=== PATIENT | female | born 1940 | race African-American/Black ===

== ENCOUNTER 2021-08-08 15:34 | Emergency (ER) | payer MEDICARE ==
[~2021-08-08] VITALS: Ht 170.2 cm; Wt 72.7 kg
--- NOTE | 2021-08-08 16:03 | EKG ---
[facility] [address] [place] [address] Test Date: 2021-08-08 Test Time: 15:56:04 Pat Name: SAMARIA BAUTISTA Department: Room: Gender: F [employer] Operator: : 1940 Requested By: JADEN PHELPS Order Number: [id number] Reading MD: Yohan Ferrell Measurements Intervals [place] Rate: 54 P: MO: QRS: -26 QRSD: 142 T: 26 QT: 438 QTc: 417 Interpretive Statements SINUS RHYTHM NON SPECIFIC ST-T WAVE CHANGES Electronically Signed On 08-09-2021 17:38:45 [employer] by Yohan Ferrell
--- NOTE | 2021-08-08 16:37 | RAD ---
AP chest. HISTORY: Chest pain AP view was taken of the chest. Lungs are free of infiltrates. Heart is normal in size. There is no p leural effusion. IMPRESSION: 1. No acute infiltrates. Electronically signed by: Juan Jose Lauren MD (08/08/2021 4:35 PM) [id number]
[2021-08-08 16:51] LABS: BASO % 1 % (0-3); EOS # 0.2 x10^3/uL (0.0-0.7); EOS % 3 % (0-3); HEMATOCRIT 34.3 % (36.0-47.0); HEMOGLOBIN 11.2 g/dL (12.0-15.5); LYMPH # 1.4 x10^3/uL (1.0-4.8); LYMPH % 29 % (24-48); MEAN CORPUSCULAR HEMOGLOBIN 30 pg (25-35); MEAN CORPUSCULAR HGB CONC 33 g/dL (31-37); MEAN CORPUSCULAR VOLUME 90 fL (79-100); MONO # 0.3 x10^3/uL (0.0-1.1); MONO % 7 % (0-9); NEUT % 61 % (31-73); PLATELET COUNT 154 x10^3/uL (140-400); RED BLOOD COUNT 3.79 x10^6/uL (3.50-5.40); RED CELL DISTRIBUTION WIDTH 14.2 % (11.5-14.5); WHITE BLOOD COUNT 4.9 x10^3/uL (4.0-11.0)
[2021-08-08 17:02] LABS: CALCIUM 8.9 mg/dL (8.5-10.1); CREATININE 0.9 mg/dL (0.6-1.0); GFR 60.1; POTASSIUM 4.4 mmol/L (3.5-5.1)
[2021-08-08 17:08] LABS: ALBUMIN 3.4 g/dL (3.4-5.0); ALBUMIN/GLOBULIN RATIO 0.9 (1.0-1.7); MAGNESIUM 2.3 mg/dL (1.8-2.4); TOTAL BILIRUBIN 0.3 mg/dL (0.2-1.0)
[2021-08-08] MEDS ORDERED: LIDOCAINE (700MG/PATCH) PATCH. TD ONE (18:00)
--- NOTE | 2021-08-08 18:00 | PHYS DOC ---
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 States pain started while she was sitting down at 2:00pm. Patient denies any falls, trauma, chest wall injury. Patient is drowsy on exam. EMS did not provide any paperwork from [facility] so I spoke to patient's daughter, Sigrid at [phone]. Letter sent for me that patient has history of a CVA 2019 and breast cancer treatment at [facility]. Daughter reports patient has chronic right-sided chest wall pain after vasectomy due to them cutting a vein that went all the way to the stomach. Daughter reports pain medications only make patient sleepy. Review of Systems: Review of Systems: Constitutional: Denies fever or chills. [] Eyes: Denies change in visual acuity. [] HENT: Denies nasal congestion or sore throat. [] Respiratory: Denies cough or shortness of breath. [] Cardiovascular: Denies syncope or edema. [] GI: Denies abdominal pain, nausea, vomiting, bloody stools or diarrhea. [] : Denies saddle anesthesia or incontinence Musculoskeletal: Denies back pain or joint pain. [] Integument: Denies rash or diaphoresis Neurologic: Denies headache, focal weakness or sensory changes. [] Endocrine: Denies polyuria or polydipsia. [] Lymphatic: Denies swollen glands. [] Psychiatric: Denies depression or anxiety. [] Heart Score: C/O Chest Pain: Yes HEART Score for Chest Pain: HEART Score for Chest Pain Response (Comments) Value History Slighlty/Non-Suspicious 0 ECG Nonspecific Repolarizatio 1 Age < 45 0 Risk Factors >3 Risk Factors or Hx CAD 2 Troponin < Normal Limit 0 Total 3 Risk Factors: Risk Factors: DM, Current or recent (<one month) smoker, HTN, HLP, family history of CAD, obesity. Risk Scores: Score 0 - 3: 2.5% MACE over next 6 weeks - Discharge Home Score 4 - 6: 20.3% MACE over next 6 weeks - Admit for Clinical Observation Score 7 - 10: 72.7% MACE over next 6 weeks - Early Invasive Strategies Allergies: Allergies: Allergies Coded Allergies Type Severity Reaction Last Updated Verified No Known Drug Allergies 08/08/21 No Physical Exam: PE: Constitutional: Well developed, well nourished, no acute distress, non-toxic darvin earance. HENT: Normocephalic, atraumatic, Eyes: EOMI, conjunctiva normal, no discharge. Neck: Normal range of motion, supple, Cardiovascular: S1/2 present, regular rhythm, large scar right upper anterior chest wall with tenderness to palpation, no associated rash Lungs & Thorax: Speaking in full sentences, bilateral equal chest rise, no tachypnea or increased work of breathing Abdomen: soft, no tenderness, Skin: Warm, dry, no erythema, no rash. [] Back: No tenderness, no CVA tenderness. [] Extremities: No tenderness, no cyanosis, Neurologic: Alert and oriented X 3, normal motor function, normal sensory function, no focal deficits noted. [] Psychologic: Affect normal, judgement normal, mood normal. [] Current Patient Data: Labs: Laboratory Tests Test 08/08/21 16:40 White Blood Count 4.9 x10^3/uL (4.0-11.0) Red Blood Count 3.79 x10^6/uL (3.50-5.40) Hemoglobin 11.2 g/dL (12.0-15.5) L Hematocrit 34.3 % (36.0-47.0) L Mean Corpuscular Volume 90 fL (79-100) Mean Corpuscular Hemoglobin 30 pg (25-35) Mean Corpuscular Hemoglobin Concent 33 g/dL (31-37) Red Cell Distribution Width 14.2 % (11.5-14.5) Platelet Count 154 x10^3/uL (140-400) Neutrophils (%) (Auto) 61 % (31-73) Lymphocytes (%) (Auto) 29 % (24-48) Monocytes (%) (Auto) 7 % (0-9) Eosinophils (%) (Auto) 3 % (0-3) Basophils (%) (Auto) 1 % (0-3) Neutrophils # (Auto) 3.0 x10^3/uL (1.8-7.7) Lymphocytes # (Auto) 1.4 x10^3/uL (1.0-4.8) Monocytes # (Auto) 0.3 x10^3/uL (0.0-1.1) Eosinophils # (Auto) 0.2 x10^3/uL (0.0-0.7) Basophils # (Auto) 0.0 x10^3/uL (0.0-0.2) D-Dimer (Belle) 1.02 ug/mlFEU (0.00-0.50) H Sodium Level 147 mmol/L (136-145) H Potassium Level 4.4 mmol/L (3.5-5.1) Chloride Level 110 mmol/L (98-107) H Carbon Dioxide Level 27 mmol/L (21-32) Anion Gap 10 (6-14) Blood Urea Nitrogen 14 mg/dL (7-20) Creatinine 0.9 mg/dL (0.6-1.0) Estimated GFR (Cockcroft-Gault) 60.1 BUN/Creatinine Ratio 16 (6-20) Glucose Level 110 mg/dL (70-99) H Calcium Level 8.9 mg/dL (8.5-10.1) Magnesium Level 2.3 mg/dL (1.8-2.4) Total Bilirubin 0.3 mg/dL (0.2-1.0) Aspartate Amino Transferase (AST) 11 U/L (15-37) L Alanine Aminotransferase (ALT) 16 U/L (14-59) Alkaline Phosphatase 100 U/L (46-116) Troponin I High Sensitivity 8 ng/L (4-50) WJ-Nsb-E-Type Natriuretic Peptide 177 pg/mL (0-449) Total Protein 7.0 g/dL (6.4-8.2) Albumin 3.4 g/dL (3.4-5.0) Albumin/Globulin Ratio 0.9 (1.0-1.7) L Lipase 46 U/L (73-393) L Laboratory Tests 08/08/21 16:40 Laboratory Tests 08/08/21 16:40 Vital Signs: Vital Signs Date Time Temp Pulse Resp B/P (MAP) Pulse Ox O2 Delivery O2 Flow Rate FiO2 08/08/21 17:07 60 19 156/70 (98) 99 Room Air 08/08/21 15:34 97.8 97.8 EKG: EKG: Concern for regular rhythm w/irregular P waves at 54 bpm, left axis deviation, normal intervals, right bundle branch block present with strain/T wave inversion V2, no ST elevation or ST depression Radiology/Procedures: Radiology/Procedures: IMAGING REPORT Signed PATIENT: SAMARIA BAUTISTA ACCOUNT: [id number] : 1940 LOCATION: ER AGE: 81 SEX: F EXAM STATUS: PRE ER ORD. PHYSICIAN: JADEN PHELPS DO REASON: cp PROCEDURE: PORTABLE CHEST 1V AP chest. HISTORY: Chest pain AP view was taken of the chest. Lungs are free of infiltrates. Heart is normal in size. There is no pleural effusion. IMPRESSION: 1. No acute infiltrates. Electronically signed by: Juan Jose Lauren MD (08/08/2021 4:35 PM) [id number] DICTATED and SIGNED BY: JUAN JOSE LAUREN MD DATE: 08/08/21 [id number] 0 Course & Med Decision Making: Course & Med Decision Making Pertinent Labs and Imaging studies reviewed. (See chart for details) Concern for right-sided chest wall discomfort that started at 2:00 this afternoon. Patient reports no associated symptoms. Patient is calm, resting in no distress. Mild bradycardia. Does appear slightly drowsy after analgesia. [facility] and we are awaiting paperwork regarding patient's past medical history. Chest x-ray unremarkable. EKG with no ST elevations. Basic labs are within normal limits except for an elevated D-dimer. Patient is pending a CTA of the chest to evaluate for pulmonary embolus given the patient's immobile state/bedbound/wheelchair dependent. Will also recommend repeat troponin. Due to shift change patient was signed out to oncoming physician Dr. Baig from further medical evaluation disposition. Dragon Disclaimer: Dragon Disclaimer: This electronic medical record was generated, in whole or in part, using a voice recognition dictation system. Departure Departure Impression: Primary Impression: Right-sided chest wall pain JADEN PHELPS DO Aug 08, 2021 18:00
[2021-08-08] MEDS ORDERED: IOHEXOL 350 MG/ML 100 ML VIAL. IV ONE (18:15)
[2021-08-08] MEDS ORDERED: CONTRAST GIVEN. MC PRN (18:15)
[2021-08-08 19:03] LABS: PROTHROMBIN TIME PATIENT 12.6 SEC (11.7-14.0)
--- NOTE | 2021-08-08 20:58 | RAD ---
Bilateral lower extremity venous Doppler dated 08/08/2021 8:55 PM COMPARISON: none. CLINICAL INDICATION: Chest pain elevated d-dimer. FINDINGS: Grayscale, color-flow and spectral waveform analysis performed to include the deep venous system of b ilateral lower extremity. There is normal compressibility, phasicity and augmentation of flow through out. No filling defects are seen. IMPRESSION: No evidence of bilateral lower extremity deep vein thrombosis. Electronically signed by: Calrton Breen MD (08/08/2021 8:56 PM) JOSE J
[2021-08-08 22:22] VITALS: BP 163/79
== END 2021-08-08 22:40 ==
LOC: ER 15:34
DX: R07.89 Other chest pain (principal); I10 Essential (primary) hypertension; Z86.73 Personal history of transient ischemic attack (TIA), and cerebral infarction without residual deficits
CPT/HCPCS: 36415; 71045; 80053; 83690; 83735; 83880; 84484; 85025; 85379; 85610; 93005; 93970; 99285-25